=== PATIENT | male | born 1950 | race Caucasian/White ===

== ENCOUNTER 2017-10-23 09:03 | Day surgery (SDC) | payer MEDICARE, BC ==
[~2017-10-23] VITALS: Ht 172.7 cm; Wt 122.7 kg
--- NOTE | ~2017-10-23 | OP ---
PATIENT NAME: ROMAIN DENNIS MEDICAL RECORD: [id number] :46 LOCATION:[facility] ADMISSION DATE: SURGEON: YAJAIRA CARPENTER DO DATE OF OPERATION: 10/23/2017 PROCEDURE: EGD with biopsies. INDICATIONS FOR PROCEDURE: Anemia, heartburn. SCOPE: Olympus video gastroscope. MEDICATIONS: Propofol 130 mg IV per anesthesia. ESTIMATED BLOOD LOSS: Minimal. COMPLICATIONS: None. FINDINGS: Informed consent was given. The patient was made comfortable with the above medication. After reaching an adequate level of sedation by slow IV push, the patient was placed on his left side. The endoscope was advanced under direct visualization through the mouth to the second portion of the duodenum. The upper, middle, and lower thirds of the esophagus appeared normal. At the GE junction, there was some mild evidence of LA class A reflux-induced esophagitis. A cold forceps biopsy was taken of this site. The endoscope was advanced beyond the GE junction into the stomach and retroflexed to view the cardia and fundus, which appeared normal. The body of the stomach and antrum of the stomach also appeared normal. Random biopsies were taken to submit for histopathology and to rule out H pylori. Just proximal to the pylorus, there was a single superficial ulceration present within the stomach, which appeared benign. It measured approximately 2 mm in diameter. The endoscope was advanced beyond the pylorus into the duodenum where the bulb and second portion of the duodenum appeared normal. Two cold forceps biopsies were taken to submit for histology. The endoscope was withdrawn from the patient. The patient tolerated the procedure well and there were no complications. IMPRESSION: 1. LA class A reflux-induced esophagitis. 2. A single superficial gastric ulcer located in the prepyloric region. PLAN AND RECOMMENDATIONS: 1. Discharge home when recovery parameters are met. 2. Follow up biopsy specimen results. 3. Continue current medications including ranitidine 150 mg daily. 4. Proceed with colonoscopy as scheduled. TRANSINT:[id number] Voice Confirmation ID: [id number] DOCUMENT ID: [id number] OPERATIVE REPORT [id number] ROMAIN DENNIS YAJAIRA CARPENTER DO at 1616 CC: [id number] DICTATION DATE: 10/23/17 123 PRESS SETUP OPERATOR: 10/23/17 1254 [facility] 10/23/17 [facility] [address] [place] [address]
[2017-10-23 10:47] LABS: ANION GAP 10.6 mmol/L (8-16); CALCIUM 9.4 mg/dL (8.5-10.1); CARBON DIOXIDE 32.3 mmol/L (21.0-32.0); CREATININE - SERUM 1.1 mg/dL (0.6-1.3); POTASSIUM - SERUM 3.9 mmol/L (3.5-5.1)
[2017-10-23 10:49] LABS: HEMATOCRIT 35.1 % (42.0-54.0); HEMOGLOBIN 11.1 g/dL (13.5-17.5); LYMPHOCYTES 24.6 % (15-50); MCH 26.4 pg (26.0-34.0); MCHC 31.6 g/dL (31.0-37.0); MCV 83.6 fL (80.0-100.0); MEAN PLATELET VOLUME 10.2 fL (7.4-10.4); NEUTROPHILS 66.4 % (40-80); PLATELET COUNT 173 10x3/uL (130-400); RDW 15.8 % (11.5-14.5)
[2017-10-23 11:08] LABS: INR 1.07 (0.85-1.17); PROTIME 13.3 SECONDS (11.6-15.0)
[2017-10-23 11:12] VITALS: BP 130/71; Ht 172.7 cm; Wt 122.7 kg
[2017-10-23] MEDS ORDERED: DURAGESIC1 PATCH .4 TRANSDERM (11:28)
[2017-10-23] MEDS ORDERED: DURAGESIC1 PATCH .1 TRANSDERM (11:28)
[2017-10-23] MEDS ORDERED: DURAGESIC1 PATCH .7 TRANSDERM (11:29)
[2017-10-23] MEDS ORDERED: PERCOCET 10/3251 TA1 PO (11:30)
[2017-10-23] MEDS ORDERED: CLONAZEPAM0.25 MG/TA PO (11:30)
[2017-10-23] MEDS ORDERED: KLOR-CON M2020 MEQ PO (11:31)
[2017-10-23] MEDS ORDERED: PROZAC40 MG PO (11:32)
[2017-10-23] MEDS ORDERED: BACTRIM DS TABL1 TAB PO (11:32)
[2017-10-23] MEDS ORDERED: PREVACID30 MG PO (11:33)
[2017-10-23] MEDS ORDERED: CALAN SR240 MG PO (11:33)
[2017-10-23] MEDS ORDERED: FUROSEMIDE20 MG PO (11:33)
[2017-10-23] MEDS ORDERED: MIRALAX17 GM PO (11:34)
[2017-10-23] MEDS ORDERED: ZANTAC150 MG PO (11:34)
[2017-10-23] MEDS ORDERED: AMITIZA24 MCG PO (11:35)
[2017-10-23] MEDS ORDERED: METOLAZONE5 MG PO (11:36)
[2017-10-23] MEDS ORDERED: ELIQUIS5 MG PO (11:36)
[2017-10-23] MEDS ORDERED: GABAPENTIN100 MG PO (11:36)
[2017-10-23] MEDS ORDERED: VITAMIN B-1250 MCG PO (11:37)
[2017-10-23] MEDS ORDERED: VITAMIN E400 UNI2 PO (11:37)
[2017-10-23] MEDS ORDERED: CENTRUM MEN'S1 EACH PO (11:38)
[2017-10-23] MEDS ORDERED: FISH OIL 1,2001 CAP PO (11:38)
[2017-10-23] MEDS ORDERED: BAYER CHEWABLE81 MG PO (11:38)
== END 2017-10-23 13:50 | disposition home or self-care (01) ==
LOC: D.OPS 09:03
PROVIDERS: Anesthesiology
DX: K21.0 Gastro-esophageal reflux disease with esophagitis (principal); K25.9 Gastric ulcer, unspecified as acute or chronic, without hemorrhage or perforation; D64.9 Anemia, unspecified; R12 Heartburn; Z01.812 Encounter for preprocedural laboratory examination

== ENCOUNTER 2017-11-22 09:26 | Day surgery (SDC) | payer MEDICARE, BC ==
[~2017-11-22] VITALS: Ht 172.7 cm; Wt 120.5 kg
--- NOTE | ~2017-11-22 | OP ---
PATIENT NAME: ROMAIN DENNIS MEDICAL RECORD: [id number] :46 LOCATION:[facility] ADMISSION DATE: SURGEON: YAJAIRA CARPENTER DO DATE OF OPERATION: 11/22/2017 PROCEDURE: Colonoscopy with polypectomy. INDICATIONS FOR PROCEDURE: Anemia, constipation, altered bowel function. SCOPE: Olympus video pediatric colonoscope. MEDICATIONS: Propofol 600 mg IV per anesthesia. WITHDRAWAL TIME: 17 minutes. ESTIMATED BLOOD LOSS: Minimal. COMPLICATIONS: None. FINDINGS: Informed consent was given. The patient was made comfortable with the above medication. After reaching an adequate level of sedation by slow IV push, the patient was placed on his left side. A digital rectal examination was performed and was normal. The endoscope was then advanced under direct visualization through the rectum to the terminal ileum. The appendiceal orifice was visualized. The endoscope was slowly withdrawn and mucosa was carefully examined. The prep quality was good. There were 6 polyps visualized on the examination. The first two were located in the cecum. They were benign-appearing and sessile and measured approximately 2-4 mm in diameter. Both removed using hot forceps in 1 piece and completely retrieved. In the transverse colon, there were four separate polyps. They ranged in size from 3-6 mm in diameter. They were all benign appearing and sessile. Two were removed using a hot snare in 1 piece and completely retrieved and the other 2 were removed using hot forceps in 1 piece and completely retrieved. Retroflexion was performed in the rectum with a normal appearing rectal wall. There were no diverticula visualized on today's examination. The endoscope was withdrawn from the patient. The patient tolerated the procedure well and there were no complications. IMPRESSION: 1. Multiple polyps as described above removed using combination of hot forceps and hot snare. 2. Otherwise, normal colonoscopy. PLAN AND RECOMMENDATIONS: 1. Discharge home when recovery parameters are met. 2. Follow up biopsy specimen results. 3. Continue current diet. 4. Continue current medications. 5. Continue Amitiza, but I recommend scheduled dosing of twice daily, scheduled dosing to maintain regular bowel movements. If this does not help with bowel movements, I have asked the patient to contact the clinic so that we can adjust his dosing or try a different medication. 6. Recall colonoscopy in 3 years based on the number and types of polyps removed on today's examination. OPERATIVE REPORT [id number] ROMAIN DENNIS TRANSINT:[id number] Voice Confirmation ID: [id number] DOCUMENT ID: [id number] YAJAIRA CARPENTER DO at 0842 CC: [id number] DICTATION DATE: 11/22/17 1313 [employer]: 11/22/17 1406 [facility] 11/22/17 [place] [id number] [place] [id number]
[~2017-11-22 09:26] MED LIST: AMITIZA24 MCG PO; BACTRIM DS TABL1 TAB PO; BAYER CHEWABLE81 MG PO; CALAN SR240 MG PO; CENTRUM MEN'S1 EACH PO; CLONAZEPAM0.25 MG/TA PO; DURAGESIC1 PATCH .1 TRANSDERM; DURAGESIC1 PATCH .4 TRANSDERM; DURAGESIC1 PATCH .7 TRANSDERM; ELIQUIS5 MG PO; FISH OIL 1,2001 CAP PO; FUROSEMIDE20 MG PO; GABAPENTIN100 MG PO; KLOR-CON M2020 MEQ PO; METOLAZONE5 MG PO; MIRALAX17 GM PO; PERCOCET 10/3251 TA1 PO; PREVACID30 MG PO; PROZAC40 MG PO; VITAMIN B-1250 MCG PO; VITAMIN E400 UNI2 PO; ZANTAC150 MG PO
[2017-11-22 10:27] VITALS: BP 141/73; Ht 172.7 cm; Wt 120.5 kg
[2017-11-22 10:30] LABS: CALC OSMOLALITY 280 mosm/kg (275-300); CALCIUM 8.9 mg/dL (8.5-10.1); CARBON DIOXIDE 31.3 mmol/L (21.0-32.0); CHLORIDE - SERUM 99 mmol/L (98-107); GLUCOSE 93 mg/dL (74-106); POTASSIUM - SERUM 3.5 mmol/L (3.5-5.1); SODIUM 140 mmol/L (136-145); UREA NITROGEN 18 mg/dL (7-18); eGFR NON AFRICAN AMERICAN 79 mL/min (90-120)
[2017-11-22 10:31] LABS: APTT 24.2 SECONDS (22.8-39.4); INR 1.09 (0.85-1.17); PROTIME 13.7 SECONDS (11.6-15.0)
[2017-11-22 10:39] LABS: BASOPHILS 0.1 % (0-2); EOSINOPHILS 3.6 % (0-7); HEMATOCRIT 38.1 % (42.0-54.0); HEMOGLOBIN 12.2 g/dL (13.5-17.5); IMMATURE GRANULOCYTES 0.1 % (0-5); LYMPHOCYTES 24.4 % (15-50); MCH 27.1 pg (26.0-34.0); MCV 84.7 fL (80.0-100.0); MONOCYTES 7.6 % (2-11); NEUTROPHILS 64.2 % (40-80); PLATELET COUNT 187 10x3/uL (130-400); RDW 15.4 % (11.5-14.5); WBC 8.9 10x3/uL (4.8-10.8)
== END 2017-11-22 14:15 | disposition home or self-care (01) ==
LOC: D.OPS 09:26
PROVIDERS: Anesthesiology; Internal Medicine Gastroenterology
DX: D64.9 Anemia, unspecified (principal); K59.00 Constipation, unspecified; D12.0 Benign neoplasm of cecum; D12.3 Benign neoplasm of transverse colon; Z01.812 Encounter for preprocedural laboratory examination; I10 Essential (primary) hypertension; G47.30 Sleep apnea, unspecified; K21.9 Gastro-esophageal reflux disease without esophagitis